=== PATIENT | female | born 1945 | race Caucasian/White ===

== ENCOUNTER → 2016-04-30 | Outpatient (CLI) | payer OTHER ==
--- NOTE | 2016-04-30 13:43 | CT ---
CT of the Chest (Without Contrast) Clinical Indications: Follow up pulmonary nodule. History of breast cancer. Comparison: December 30, 2013 Technique: Multidetector helical CT imaging was performed from the superior thoracic inlet to the di aphragm. The radiologist manipulated images at the computer workstation. Dose reduction techniques w ere utilized. Findings: Lung windows: The previously seen pleural-based small pulmonary nodules that are noncalcified and hav e not changed. There are no new pulmonary nodules. No calcifications or mass. No consolidation or eff usion. Mediastinal windows: Visualized thoracic aorta is normal. Coronary calcifications are present. There is chunky calcification at the base of the heart, unchanged. It is unclear whether this represents c oronary calcifications or pericardial. Bones and soft tissues are otherwise normal. No developing adenopathy. Visualized upper abdomen is wi thin normal limits. 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 Impression: No change in small noncalcified pulmonary nodules since 2013. No new pulmonary nodules.
== END ==
LOC: CIMAGING 11:21
PROVIDERS: ATTEND Family Medicine
DX: R91.1 Solitary pulmonary nodule (principal)
CPT/HCPCS: 71250-PO

== ENCOUNTER → 2016-09-24 | Outpatient (CLI) | payer OTHER | LOC: CIMAGING 10:52 | PROVIDERS: ATTEND Family Medicine | DX: Z12.31 Encounter for screening mammogram for malignant neoplasm of breast (principal); Z85.3 Personal history of malignant neoplasm of breast | CPT/HCPCS: G0202 ==

== ENCOUNTER 2017-05-05 12:04 | Emergency (ER) | payer OTHER ==
[2017-05-05 12:19] VITALS: RESP 20; TEMP 98.8
[2017-05-05] MEDS ORDERED: IPRATROPIUM/ALBUTEROL 3 ML DEYVIAL IH ONE (12:27)
--- NOTE | 2017-05-05 12:30 | EDPHY ---
H & P Time Seen by Provider: 05/05/17 12:21 HPI/ROS: CHIEF COMPLAINT: Cough, achy HISTORY OF PRESENT ILLNESS: Patient is a 71-year-old female with a history of COPD who currently smokes the presents emergency department with flu-like symptoms. She states her family travel to [place] a week and half ago. When they returned they were sick with "the flu. "She shortly became ill with flu-like symptoms as well. She has had a cough for over week. It is productive of yellow white sputum. She has been using her inhalers at home. She feels mildly short of breath. She has headache at night when she sleeps but it resolved during the day. She has diffuse body aches. No nausea or vomiting. No reported fever or chills. Patient is not using oxygen home. REVIEW OF SYSTEMS: My complete review of systems is negative except as mentioned in the HPI. Past Medical/Surgical History: Includes COPD, hepatitis-C Past surgical history: Includes splenectomy status post trauma, tonsillectomy Social history: The patient smokes cigarettes. Patient has received her influenza and Pneumovax vaccinations this year. Smoking Status: Heavy smoker Physical Exam: 37.1, 176/88, 87, 20, 90% on room air GENERAL: Well-appearing, in no acute distress, alert. HEENT: Eyes normal to inspection, normal pharynx, no signs of dehydration. NECK: [No thyromegaly, no lymphadenopathy, supple. RESPIRATORY: Coarse breath sounds bilaterally, no rales, rhonchi. Slight wheezing left anterior. No increased work of breathing. No visible respiratory distress CVS: Regular rate and rhythm, no rubs, murmurs, or gallops. ABDOMEN: Soft, nontender, nondistended, no organomegaly. BACK: Normal to inspection, no CVA tenderness. SKIN: Normal color, no rash, warm, dry. No pallor. EXTREMITIES: No pedal edema, no calf tenderness, no Homans sign or cords, no joint swelling. NEURO/PSYCH: Alert and oriented x3, normal mood and affect, normal motor sensory exam. Constitutional: Initial Vital Signs Temperature (C) 37.1 C 05/05/17 12:14 Heart Rate 87 05/05/17 12:14 Respiratory Rate 20 05/05/17 12:14 Blood Pressure 176/88 H 05/05/17 12:14 O2 Sat (%) 90 L 02/06/18 12:14 O2 Delivery Mode Room Air Allergies/Adverse Reactions: codeine [Codeine] Allergy (Verified 05/05/17 12:19) Hives doxycycline Allergy (Verified 05/05/17 12:19) metronidazole [From Flagyl] Allergy (Verified 05/05/17 12:19) Home Medications: Medication Instructions Recorded Beclomethasone Qvar 80 [Qvar 80] 2 puffs IH Q2D 02/16/14 Ibuprofen [Motrin (OTC)] 400 - 600 mg PO DAILY 02/16/14 Levalbuterol 0.63 mg [Xopenex 0.63 mg IH TID 02/16/14 0.63MG Neb (RX)] Lovastatin 40 mg PO HS 02/16/14 Methadone HCl [Methadone 5 mg (RX)] 5 mg PO DAILY@11 02/16/14 fentaNYL [Duragesic 50 MCG Patch 50 mcg TD Q72H 02/16/14 (RX)] oxyCODONE/APAP 5/325 [Percocet 1 tab PO BID PRN 02/16/14 5/325 (RX)] traZODone [traZODone 150MG (RX)] 150 mg PO HS 02/16/14 AZITHROMYCIN [Z-PACK] 250 mg PO DAILY #1 packet 05/05/17 Acyclovir 05/05/17 Anastrozole 05/05/17 SOMA 05/05/17 Spiriva Handihaler 05/05/17 predniSONE 20 mg PO DAILY 4 Days tab 05/05/17 Medical Decision Making ED Course/Re-evaluation: In the emergency department I discussed possible etiologies with the patient. I answered all her questions. Influenza screening and chest x-ray were ordered. Patient was given a DuoNeb. Patient was also given prednisone 60 mg orally. Influenza screen negative Chest x-ray: No focal infiltrate. Based on the patient's presentation with the history of COPD and oxygen saturation 90%, she will continues or inhalers at home. She has been given steroid in the emergency department and a prescription upon discharge. Due to underlying COPD she also be given a treatment of azithromycin. She is given warnings prior to leaving. Anjel will return with worsening symptoms. Differential Diagnosis: My differential includes but is not limited to COPD exacerbation, bronchitis, pneumonia, influenza, viral illness, bacteremia, sepsis - Data Points Laboratory Results: 05/05/17 12:30 Influenza A,B Rapid NEGATIVE FOR FLU (NEGATIVE) Medications Given: Discontinued Medications Albuterol/Ipratropium (Duoneb) 3 ml IH EDNOW ONE Stop: 05/05/17 12:28 Last Admin: 05/05/17 12:43 Dose: 3 ml Prednisone (Prednisone) 60 mg PO EDNOW ONE Stop: 05/05/17 12:32 Last Admin: 05/05/17 12:42 Dose: 60 mg Departure - Departure Disposition: Home, Routine, Self-Care Clinical Impression: COPD exacerbation, Bronchitis Upper respiratory tract infection Qualifiers: URI type: unspecified URI Qualified Code(s): J06.9 - Acute upper respiratory infection, unspecified Condition: Good Instructions: Upper Respiratory Infection (ED), COPD (Chronic Obstructive Pulmonary Disease) (ED), Acute Bronchitis (ED) Additional Instructions: Take your entire course of antibiotics and prednisone as directed. You need close follow-up with your primary care physician. Return with increasing shortness of breath, chest pain or any other concerns. Referrals: Karen Rogers MD [Primary Care Provider] - 2-3 days, call for appt. Prescriptions: predniSONE 20 mg PO DAILY 4 Days tab
[2017-05-05] MEDS ORDERED: predniSONE 20 MG TAB PO ONE (12:31)
[2017-05-05 13:20] VITALS: BP 155/85; PULSE 83; O2SAT 94
== END 2017-05-05 13:20 | disposition home or self-care (01) ==
LOC: CED 12:04
DX: J44.1 Chronic obstructive pulmonary disease with (acute) exacerbation (principal); J40 Bronchitis, not specified as acute or chronic; J06.9 Acute upper respiratory infection, unspecified; F17.210 Nicotine dependence, cigarettes, uncomplicated
CPT/HCPCS: 71046; 99284; J7512; 87400-PO

== ENCOUNTER → 2017-08-10 | Outpatient (CLI) | payer OTHER | LOC: BHFA 09:30 | PROVIDERS: ATTEND Internal Medicine Cardiovascular Disease | DX: R07.9 Chest pain, unspecified (principal) | CPT/HCPCS: 78452; 93017; A9500; J2785 ==

== ENCOUNTER → 2017-08-11 | Outpatient (CLI) | payer OTHER | LOC: BHFA 15:30 | PROVIDERS: ATTEND Internal Medicine Cardiovascular Disease | DX: I73.9 Peripheral vascular disease, unspecified (principal) ==